=== PATIENT | male | born 1950 | race Caucasian/White ===

== ENCOUNTER 2025-05-26 10:10 | Outpatient (OUT) | payer OTHER, MEDICARE, SELFPAY ==
--- OUTSIDE RECORDS SUMMARY | 2025-05-16 23:59 | XMS_ITS | Continuity of Care Document ---
Author Organization [facility] Address [address] 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 Incomplete bladder emptying(Discharge Diagnosis) - 05/16/25 Erectile dysfunction(Discharge Diagnosis) - 05/16/25 Discharge Disposition: Home (Routine DC) Attending Physician: Nicol Saldivar MD Encounter Type: Clinic Allergies, Adverse Reactions, Alerts SubstanceCriticalitySeverityReactionReaction SeverityStatusLatexRashActiveShrimp SwellingActive Assessment and Plan Future Appointments Appointment Date:12/05/2025 08:15:00 AM Scheduled Provider:Nicol Saldivar MD Location:[facility] Appointment Type:URO Office Visit Diagnostic Tests Pending * PSA Total 05/16/25 Future Scheduled Tests Laboratory* PSA Total 12/14/25 Immunizations Given and Recorded VaccineDateStatusRefusal GctcwdWTQH-CeK-9 (COVID-19) mRNA-1273 vaccine7 QkcbnqcfBLME-MaL-7 (COVID-19) mRNA-1273 trgdjkg77260MeimlmtzAVOP-CrO-7 (COVID-19) mRNA-1273 vaccine10/19/2085PvycjntnSQFF-CwN-0 (COVID-19) mRNA-1273 vaccine232NqjjtnmkQKFD-JdU-6 mRNA (tozinameran 5y-11y) vac08/26/20Recorded SARS-CoV-2 mRNA (tozinameran 5y-11y) vac07/26/20Recorded 1Result Comment: 2024-02-24: TPV65 Medications amitriptyline 10 mg Tab Refills(s) 0 Start Date: 02/03/23 Status: Ordered Repeat number: 1 amLODIPine 5 mg Tab Refills(s) 0 Start Date: 02/24/24 Status: Ordered Repeat number: 1 atorvastatin 20 mg Tab mg tab(s), Oral, Daily, Refills(s) 0 Start Date: 03/25/22 Status: Ordered Repeat number: 1 chlorzoxazone 500 mg Tab 500 mg = 1 tab(s), TAKE 1 TABLET BY MOUTH FOUR TIMES DAILY NEEDED Start Date: 05/16/25 Status: Ordered Repeat number: 1 finasteride 5 mg Tab Refills(s) 0 Start Date: 02/24/24 Status: Ordered Repeat number: 1 glimepiride 1 mg Tab mg tab(s), Oral, Daily, Refills(s) 0 Start Date: 03/25/22 Status: Ordered Repeat number: 1 losartan 100 mg Tab Refills(s) 0 Start Date: 08/18/23 Status: Ordered Repeat number: 1 naproxen 500 mg Tab Refills(s) 0 Start Date: 08/18/23 Status: Ordered Repeat number: 1 [place] 325 mg-5 mg oral tablet 1 tab(s), Oral, q6hr, 10 tab(s), Refill(s) 0, Take one tab prior to procedure. Then can take one tab every 6 hours as needed for pain., [id number], 171, cm, 10/25/24 11:04:00 EDT, Height/Length Dosing, 94.7, kg, 10/25/24 11:04:00 EDT, Weight Dosing Start Date: 10/25/24 Status: Ordered Quantity: 10.0 Unit: tab(s) Repeat number: 1 tamsulosin 0.4 mg Cap 0.4 mg = 1 cap(s), Oral, BID, # 180 cap(s), Refills(s) 3, Pharmacy: [facility], 171, cm, 08/18/23 8:53:00 EST, Height/Length Dosing, 83, kg, 08/18/23 8:53:00 EST, Weight Dosing Start Date: 11/23/23 Status: Ordered Quantity: 180.0 Unit: cap(s) Repeat number: 4 Problem List ConditionConfirmationCourseEffective DatesStatusHealth StatusInformantBalanitis ConfirmedResolvedBenign neoplasm of descending colonConfirmedActiveBPH with obstruction/lower urinary tract symptomsConfirmedActiveCerebrovascular accident Confirmed03/15/17ctiveImpotenceConfirmedActiveErectile dysfunctionConfirmed ActiveHyperlipidemiaConfirmed03/15/17ctiveHypertensive disorderConfirmed03/15/17 ActiveIncomplete bladder emptyingConfirmedActiveMild recurrent major depression Jjtlqddki04/19/17ctiveNocturiaConfirmedActiveBMI 29.0-29.9,adultConfirmedActive Prostate cancer screeningConfirmedActiveVertebral artery stenosisConfirmed 03/15/17ctive Procedures ProcedureDateRelated DiagnosisBody SiteStatusTransurethral insertion of prostatic urethral lift implant10/30/2468RlkqwncjgYhxuzwkhoq3/12/22Completed ColonoscopyCompleted Social History Social History TypeResponseSmoking StatusNever (less than 100 in lifetime);Never ; Smoking Cessation Yes entered on: 05/16/25Birth SexMaleSex RepresentationMale (finding) Hospital Discharge Instructions Patient Education 05/16/2025 10:44:06 Benign Prostatic Hyperplasia Benign Prostatic Hyperplasia Benign prostatic hyperplasia (BPH) is an enlarged prostate gland that is caused by the normal agingprocess. The prostate may get bigger as a man gets older. The condition is not caused by cancer. The prostate is a walnut-sized gland that is involved in the production of semen. It is located in front of the rectum and below the bladder. The bladder stores urine. The urethra carries stored urine ou t of the body. An enlarged prostate can press on the urethra. This can make it harder to pass urine. The buildup of urine in the bladder can cause infection. Back pressure and infection may progress to bladder damage and kidney (renal) failure. What are the causes? This condition is part of the normal aging process. However, not all men develop problems from thiscondition. If the prostate enlarges away from the urethra, urine flow will not be blocked. If it enlarges toward the urethra and compresses it, there will be problems passing urine. What increases the risk? This condition is more likely to develop in men older than 50 years. What are the signs or symptoms? Symptoms of this condition include: ??? Getting up often during the night to urinate. ??? Needing to urinate frequently during the day. ??? Difficulty starting urine flow. ??? Decrease in size and strength of your urine stream. ??? Leaking (dribbling) after urinating. ??? Inability to pass urine. This needs immediate treatment. ??? Inability to completely empty your bladder. ??? Pain when you pass urine. This is more common if there is also an infection. ??? Urinary tract infection (UTI). How is this diagnosed? This condition is diagnosed based on your medical history, a physical exam, and your symptoms. Tests will also be done, such as: ??? A post-void bladder scan. This measures any amount of urine that may remain in your bladder after you finish urinating. ??? A digital rectal exam. In a rectal exam, your health care provider checks your prostate by putting a lubricated, gloved finger into your rectum to feel the back of your prostate gland. This exam detects the size of your gland and any abnormal lumps or growths. ??? An exam of your urine (urinalysis). ??? A prostate specific antigen (PSA) screening. This is a blood test used to screen for prostate cancer. ??? An ultrasound. This test uses sound waves to electronically produce a picture of your prostate gland. Your health care provider may refer you to a specialist in kidney and prostate diseases (urologist). How is this treated? Once symptoms begin, your health care provider will monitor your condition (active surveillance or watchful waiting). Treatment for this condition will depend on the severity of your condition. Treatment may include: ??? Observation and yearly exams. This may be the only treatment needed if your condition and symptoms are mild. ??? Medicines to relieve your symptoms, including: ??? Medicines to shrink the prostate. ??? Medicines to relax the muscle of the prostate. ??? Surgery in severe cases. Surgery may include: ??? Prostatectomy. In this procedure, the prostate tissue is removed completely through an open incision or with a laparoscope or robotics. ??? Transurethral resection of the prostate (TURP). In this procedure, a tool is inserted through the opening at the tip of the penis (urethra). It is used to cut away tissue of the inner core of theprostate. The pieces are removed through the same opening of the penis. This removes the blockage. ??? Transurethral incision (TUIP). In this procedure, small cuts are made in the prostate. This lessens the prostate's pressure on the urethra. ??? Transurethral microwave thermotherapy (TUMT). This procedure uses microwaves to create heat. The heat destroys and removes a small amount of prostate tissue. ??? Transurethral needle ablation (TUNA). This procedure uses radio frequencies to destroy and remove a small amount of prostate tissue. ??? Interstitial laser coagulation (ILC). This procedure uses a laser to destroy and remove a smallamount of prostate tissue. ??? Transurethral electrovaporization (TUVP). This procedure uses electrodes to destroy and remove a small amount of prostate tissue. ??? Prostatic urethral lift. This procedure inserts an implant to push the lobes of the prostate away from the urethra. Follow these instructions at home: ??? Take augo-ecc-ytdwcok and prescription medicines only as told by your health care provider. ??? Monitor your symptoms for any changes. Contact your health care provider with any changes. ??? Avoid drinking large amounts of liquid before going to bed or out in public. ??? Avoid or reduce how much caffeine or alcohol you drink. ??? Give yourself time when you urinate. ??? Keep all follow-up visits. This is important. Contact a health care provider if: ??? You have unexplained back pain. ??? Your symptoms do not get better with treatment. ??? You develop side effects from the medicine you are taking. ??? Your urine becomes very dark or has a bad smell. ??? Your lower abdomen becomes distended and you have trouble passing urine. Get help right away if: ??? You have a fever or chills. ??? You suddenly cannot urinate. ??? You feel light-headed or very dizzy, or you faint. ??? There are large amounts of blood or clots in your urine. ??? Your urinary problems become hard to manage. ??? You develop moderate to severe low back or flank pain. The flank is the side of your body between the ribs and the hip. These symptoms may be an emergency. Get help right away. Call 911. ??? Do not wait to see if the symptoms will go away. ??? Do not drive yourself to the hospital. Summary ??? Benign prostatic hyperplasia (BPH) is an enlarged prostate that is caused by the normal aging process. It is not caused by cancer. ??? An enlarged prostate can press on the urethra. This can make it hard to pass urine. ??? This condition is more likely to develop in men older than 50 years. ??? Get help right away if you suddenly cannot urinate. This information is not intended to replace advice given to you by your health care provider. Make sure you discuss any questions you have with your health care provider. Document Revised: 01/28/2022 Document Reviewed: 01/28/2022 [employer] Patient Education ?? 2023 [employer]. Follow Up Care 02/07/2025 12:08:58 With:Yariel ALEXANDER, KAMARI Gatica, URO Address: [address] [place] [phone] When: Unknown Patient Care team information Care Team Personnel Name: ALEJANDRO LIVE DO Position: FT Physician Member Role: Primary Care Physician Address: [address] [facility], [place] [address]- Telecom: Name: Liz Gage Position: [employer]: Claims Followup Rep (Senior Applications Engineer) Member Role: [employer]: Claims Followup Rep (Sher) Care Team Related Persons Name: ALMAS RICHARDS Name: ALMAS RICHARDS Name: RICHARDS, ALMAS Insurance Providers Guarantor name: Health Plan Information #: 1 Payer: [employer] Payer Identifier: [id number] Member Number: [id number] Group Number: [id number] Subscriber Identifier: [id number] Relationship to Subscriber: spouse Coverage Type: PRIVATE HEALTH INSURANCE Coverage Verification Date: 25 Telecom: [phone] Address: [facility] [id number] Health Plan Information #: 2 Payer: MEDICARE Payer Identifier: [id number] Member Number: [id number] Group Number: [id number] Subscriber Identifier: [id number] Relationship to Subscriber: self Coverage Type: MEDICARE Coverage Verification Date: 25 Telecom: [phone] Address: [facility] [address]
--- OUTSIDE RECORDS SUMMARY | 2025-05-26 10:20 | XMS_ITS | Patient Health Record ---
Author Organization [facility] Address [address], [place] [id number] Care Team Providers Care Station Examiner Name Role Phone Vibha Moffett [phone] Allergies Allergen (clinical drug ingredient) Drug/Non Drug Allergy documented on EMR Reaction Allergy Type Onset Date Status Latex Latex Unknown Allergy Active Reason For Referral No Information Medications Medication SIG (Take, Route, Frequency, Duration) Notes Start Date End Date Status Carvedilol 6.25 MG Oral; Duration: 90 Days ActiveTamsulosin HCl 0.4 MGTAKE 1 CAPSULE BY MOUTH DAILY Oral; Duration: 30 Days ActiveAtorvastatin Calcium 20 MGOral; Duration: 90 DaysActiveGlimepiride 1 MG Oral; Duration: 90 DaysActiveTadalafil 5 MGOral; Duration: 30 DaysActive levoFLOXacin 750 MGOral; Duration: 8 DaysActiveSulfamethoxazole-Trimethoprim 800-160 MGTAKE 1 TABLET BY MOUTH TWICE DAILY Oral; Duration: 14 DaysActive Social History Sex Assigned At : Social History Observation Description Sex Assigned At Male Plan Of Treatment No Information Insurance Providers Payer Name Payer Address Payer Phone Subscriber Number Group Number Insured Name Patient Relationship to Insured Coverage Start Date Coverage End Date [employer] [address] [place], [place] [id number] Roman Baker Self - patient is the insured 2
--- OUTSIDE RECORDS SUMMARY | 2025-05-26 10:20 | XMS_ITS | Clinical Summary ---
Author Organization [facility] Address [address] [place] [address] Care Team Providers Care Commercial Collector Name Role Phone Unavailable Primary Care Provider Unavailabl e Social History Tobacco UseTypesPacks/DayYears UsedDateSmoking Tobacco: Never AssessedSex and Gender InformationValueDate RecordedSex Assigned at BirthNot on fileLegal Sex Male10/07/2022 11:20 PM EDTGender IdentityNot on fileSexual OrientationNot on file Last Filed Vital Signs Vital SignReadingTime TakenCommentsBlood Qwhkatnl071/8210 12:00 PM EDT Pulse--Temperature--Respiratory Rate--Oxygen Saturation--Inhaled Oxygen Concentration--Tofovr07.7 kg (200 lb)04/30/2021 12:00 PM MAVSfypqg961.2 cm (5' 7 )04/30/2021 12:00 PM EDTBody Mass Index31.321 12:00 PM EDT Plan of Treatment Not on file Insurance
[2025-05-26 10:41] LABS: Hematocrit 43.5 % (42.0-54.0); Hemoglobin 15.0 g/dL (14.0-18.0); Immature Granulocytes Abs Auto 0.05 10^3/uL (0.00-0.03); Immature Granulocytes Pct Auto 0.5 % (0.0-0.5); Lymphocytes Absolute Auto 2.8 10^3/uL (1.2-3.8); Mean Corpuscular HGB Conc 34.5 g/dL (29.9-35.2); Mean Corpuscular Hemoglobin 32.5 pg (25.9-34.0); Mean Corpuscular Volume 94.4 fL (80.0-94.0); Platelet Count 197 10^3/uL (150-450); Red Blood Count 4.61 10^6/uL (4.70-6.10); White Blood Count 9.4 10^3/uL (4.0-11.0)
[2025-05-26 11:40] LABS: Alanine Aminotransferase 36 U/L (16-63); Albumin Globulin Ratio 1.2; Albumin Level 4.0 g/dL (3.4-5.0); Alkaline Phosphatase 84 U/L (46-116); Anion Gap 15.3; Aspartate Amino Transferase 17 U/L (15-37); Blood Urea Nitrogen 13.0 mg/dL (7.0-18.0); Calcium 9.0 mg/dL (8.5-10.1); Carbon Dioxide 24.8 mmol/L (21.0-32.0); Chloride 101 mmol/L (98-107); Estimated GFR (African America >60 (>=60 mL/min/1.73m^2); Estimated GFR (Non-African Ame >60 (>=60 mL/min/1.73m^2); Globulin 3.4 g/dL; Glucose 178 mg/dL (74-106); Potassium 4.1 mmol/L (3.5-5.1); Sodium 137 mmol/L (136-145); Total Protein 7.4 g/dL (6.4-8.2)
== END 2025-05-26 10:11 | disposition home or self-care (01) ==
PROVIDERS: PCP Internal Medicine; Visit Provider Internal Medicine
DX: E11.65 Type 2 diabetes mellitus with hyperglycemia (principal); I10 Essential (primary) hypertension; Z12.5 Encounter for screening for malignant neoplasm of prostate
CPT/HCPCS: 36415; 80053; 82043; 82570; 85025; G0103